=== PATIENT | female | born 1945 | race Caucasian/White ===

== ENCOUNTER 2024-05-24 14:38 | Emergency (ER) | payer MEDICARE, OTHER, SELFPAY ==
[2024-05-24] VITALS (7 sets, daily range): BP systolic 150–168; BP diastolic 53–74; PULSE 72–84; RESP 10–16; TEMP 36.5–36.7; O2SAT 95–99; BMI 24.4
--- NOTE | ~2024-05-24 | XR_ITS ---
EXAMINATION: XR CHEST CLINICAL INFORMATION: Syncope COMPARISON: None available. TECHNIQUE: Frontal view of the chest was obtained. FINDINGS: Lungs are clear. No focal airspace consolidation. No pneumothorax or pleural effusion. Soft tissue and osseous structures are within normal limits. Median sternotomy wires intact without dehiscence. Multiple clips in the mediastinum. Bilateral shoulder osteoarthritis. XR/XR chest 1V IMPRESSION: No acute cardiopulmonary process Electronically signed by: Gideon Aguayo DO 05/24/2024 04:11 PM EDT
--- NOTE | ~2024-05-24 | CT_ITS ---
EXAMINATION: CT HEAD WITHOUT CONTRAST CLINICAL INFORMATION: Syncopal episode COMPARISON: None available. TECHNIQUE: Contiguous axial imaging was performed from the skull base to vertex without intravenous administration of contrast. This CT examination was performed using dose optimization techniques as appropriate, variously including the following: *Automated exposure control *Adjustment of mA and/or kV according to patient size (this includes techniques or standardized protocols for targeted exams where dose is matched to indication/reason for exam; i.e. extremities or head) *Use of iterative reconstruction technique DLP: 638 mGy-cm FINDINGS: No intra-axial or extra-axial hemorrhage. No acute territorial infarct. Ventricles and sulci appear normal. Chronic small vessel ischemic disease of the periventricular white matter. Preservation of tapia-white matter differentiation. No mass, mass effect, or midline shift. No fracture. The mastoid air cells and visualized paranasal sinuses are clear. CT/CT head/brain wo IV con IMPRESSION: No acute intracranial pathology. Electronically signed by: Talha Juarez MD 05/24/2024 05:01 PM EDT
--- NOTE | 2024-05-24 15:14 | ECG_ITS ---
Test Reason : SYNCOPE Blood Pressure : / mmHG Vent. Rate : 071 BPM Atrial Rate : 071 BPM P-R Int : 188 ms QRS Dur : 082 ms QT Int : 436 ms P-R-T Axes : 066 063 082 degrees QTc Int : 473 ms Normal sinus rhythm Nonspecific ST abnormality Abnormal ECG No previous ECGs available Referred By: Navdeep Kennedy Electronically Signed By:NARDA OLIVER
--- NOTE | 2024-05-24 15:16 | ED.SYNCOPE ---
HPI - Syncope General Chief Complaint: Syncope Stated Complaint: SYNCOPAL EPISODE PER EMS Time Seen by Provider: 05/24/24 15:09 Source: patient, family and EMS Mode of arrival: EMS Limitations: no limitations History of Present Illness ED Provider: DR. Kennedy HPI narrative: 79-year-old female with significant past medical history of kidney disease, [place] had triple bypass, insulin-dependent diabetes for 60 years, chronic anemia, takes iron And takes once a month iron shot prescribed by her renal doctor, chronic black stool patient had recent endoscopy reportedly was negative, patient otherwise is active and live independently, patient was having a brunch with her family was sitting in the sun for long time patient apparently passed out do not remember the event, next thing she remember that she was on the floor. daughter in-law who witnessed the whole event said that it took about 3 minute when she lost consciousness questionable fine movement was not described as tonic-clonic, patient regained her full consciousness in 2 3 minutes with no postictal course, no self urination, family laid the patient on the ground with no head injury. Patient now feels herself, no chest pain, no shortness of breath. Related Data Allergies Allergy/AdvReac Type Severity Reaction Status Date / Time Penicillins Allergy Rash Verified 05/24/24 15:03 Sulfa (Sulfonamide Allergy Rash Verified 05/24/24 15:03 Antibiotics) Review of Systems Review of Systems: all other systems are reviewed and are negative Constitutional: Reports as per HPI and Reports no additional constitutional complaints Eyes: Reports as per HPI and Reports no additional eye complaints Reports system reviewed and no additional complaints, except as documented Cardiovascular: Reports as per HPI and Reports no additional cardiovascular complaints Respiratory: Reports as per HPI and Reports no additional respiratory complaints Gastrointestinal: Reports as per HPI and Reports no additional gastrointestinal complaints Genitourinary: Reports no additional female genitourinary complaints Musculoskeletal: Reports no additional musculoskeletal complaints Skin/Breast: Reports system reviewed and no additional complaints, except as docu Psychiatric: Reports no additional psychiatric complaints Endocrine: Reports no additional endocrine complaints Hematologic/Lymphatic: Reports no additional hematologic/lymphatic complaints Allergic/Immunologic: Reports no additional allergic/immunologic complaints Reports system reviewed and no additional complaints, except as documented and Reports Abnormal speech present [facility] Social History Social History Smoked in Last 30 Days: No Use of substances other than those prescribed or required for medical reasons: No Advance Directives: Yes Advance Directives Information Provided: No Advance Directives on File: No Do you have a plan to hurt others: No Plan Physical Exam Vital Signs: Vital Signs: Last Vital Signs Temp 97.7 F 05/24/24 15:05 Pulse 84 05/24/24 16:01 Resp 10 L 05/24/24 15:05 BP 159/59 H 05/24/24 16:01 Pulse Ox 95 05/24/24 15:10 O2 Del Method Room Air 05/24/24 15:10 BMI result Body Mass Index 24.4 Vital signs have been reviewed and appear to be correct. Blood pressure elevated. Heart rate normal. Respiratory rate normal. Temperature normal. Oxygen saturation normal. Appearance: Alert. Oriented X3. No acute distress. Head: Normal external exam. Normocephalic. Atraumatic. No Hunter signs noted. No raccoon eyes noted Eyes: PERRLA. EOMI. Conjunctiva and sclera normal. Eyelids normal. ENT: TM's Normal. Pharynx normal. Uvula midline. Moist mucous membranes. No trismus noted. No drooling noted. No muffled voice noted. Neck: Normal inspection. Neck supple. FROM. No adenopathy. Thyroid Normal. No meningeal signs. No neck mass noted. CVS: Normal heart rate and rhythm. Heart sound normal. No murmurs noted. Pulses normal throughout. Respiratory: No respiratory distress. Painless inspiration. Breath sounds normal. No wheezes/rales/rhonchi noted. Chest nontender. No accessory muscle usage noted or decreased air movement noted. Abdomen: Soft and nontender. Bowel sounds normal in all 4 quadrants. No distention noted. No organomegaly noted. No visible injury noted. Back: No CVA tenderness. Full range of motion noted. Skin: Skin warm and dry. Normal skin color. Normal skin turgor. No rashes/lesions/lacerations noted. Extremities: No lower extremity edema. Extremities exhibit normal range of motion. Extremities nontender. Neuro: Oriented X 3. GCS 15 Cranial nerve exam: II-XII are grossly intact No motor deficit. No sensory deficit. Reflexes normal. Course Reevaluation(s) Reevaluation #1: syncopal episode after having branch with her entire family, patient is going through stress granddaughter wedding, patient also spend lot of time sitting in the sun today before the event happened. Patient has negative workup in the emergency department, no orthostatic, negative head CT, no ACS troponin is negative x2 with unremarkable EKG. patient was offered admission for cardiac monitoring for detecting any lethal dysrhythmia but daughter is a nurse and she will take her home monitor her overnight make sure she follow-up with her residential builder. Time: 18:01 Medications Administered Discontinued Medications Generic Name Dose Route Start Last Admin Trade Name Freq PRN Reason Stop Dose Admin Sodium Chloride 1,000 mls @ 999 mls/hr 05/24/24 15:14 05/24/24 16:50 Ns IV 05/24/24 16:14 Infused .Q1H1M ONE Infusion Medical Decision Making Differential Diagnosis Differential Diagnoses: The differential diagnosis associated with the presentation includes ( Syncope, seizure, electrolyte derangement, severe anemia, dehydration, ACS, CHF, UTI, upper respiratory viral infection, intracranial bleed, pneumonia.) Admission/Observation Consideration of admission/observation: Escalation of care including admission/observation considered Lab Data MDM Lab Attestation statement: I reviewed the patient's lab results. 05/24/24 15:32 05/24/24 15:32 Labs: Lab Results 05/24/24 05/24/24 Range/Units 15:32 16:57 WBC 7.1 (4.8-10.8) X10*3/uL RBC 3.22 L (4.20-5.50) X10*6/uL Hgb 9.6 L (12.0-16.0) g/dl Hct 29.5 L (37.0-47.0) % MCV 91.6 (80.0-98.0) fL MCH 29.8 (27.0-33.0) pg MCHC 32.5 (31.0-35.0) g/dl RDW 15.4 (11.0-16.0) % Plt Count 225 (160-400) X10*3/uL MPV 9.1 L (9.4-12.3) fL Immature Gran % (Auto) 0.3 (0.0-0.4) % Neut % (Auto) 68.9 (45-73) % Lymph % (Auto) 16.0 L (20-40) % Stanley % (Auto) 9.7 (2-11) % Eos % (Auto) 4.4 H (0-4) % Baso % (Auto) 0.7 (0-2) % Lymph # (Auto) 1.1 L (1.2-4.9) X10*3/uL [place] # (Auto) 0.7 (0.1-1.2) X10*3/uL Eos # (Auto) 0.3 (0.0-0.4) X10*3/uL Baso # (Auto) 0.1 (0.0-0.2) X10*3/uL Abs Immat Gran (auto) 0.02 (0.00-0.03) X10*3/uL Absolute Neuts (auto) 4.9 (2.0-8.3) x10*3/uL Absolute Nucleated RBC 0.000 (0.0-0.012) X10*3/uL Nucleated RBC % (auto) 0.0 (0.0-0.2) /100WBC Sodium 144 (135-145) mmol/L Potassium 4.2 (3.3-5.1) mmol/L Chloride 107 (96-108) mmol/L Carbon Dioxide 23 (22-29) mmol/L Anion Gap 18 (12-20) BUN 56 H (9-16) mg/dL Creatinine 3.32 H (0.5-1.4) mg/dL Estim Creat Clear Calc 11.0 Estimated GFR 13 Random Glucose 168 H (60-115) mg/dL Calcium 9.0 (8.4-10.2) mg/dL Total Bilirubin 0.3 (0.0-1.0) mg/dL Direct Bilirubin 0.1 (0.0-0.5) mg/dL AST 19 (5-31) U/L ALT 16 (0-31) U/L Alkaline Phosphatase 86 (39-117) U/L Troponin I High Sens 13.2 13.3 (<3.5-17.0) ng/L B-Natriuretic Peptide 454 H (<100) pg/mL Total Protein 6.8 (6.5-8.0) g/dL Albumin 3.6 (3.5-5.0) g/dL Lipase 23 (8-78) U/L Urine Color Yellow Urine Appearance Clear Urine pH 6.0 (5.0-9.0) Ur Specific [place] 1.010 (1.005-1.025) Urine Protein 100 (2+) H (Neg-Trace) mg/dL Urine Glucose (UA) 500 H (Negative) mg/dL Urine Ketones Negative (Negative) mg/dL Urine Blood Trace H (Negative) Urine Nitrite Negative (Negative) Ur Leukocyte Esterase Small (1+) H (Negative) Urine RBC 3-5 H (0-2) /HPF Urine WBC 0-5 (0-5) /HPF Ur Squamous Epith Cells 0-2 (0-2) /HPF Urine Bacteria 3+ (None Seen) Hyaline Casts 3-5 (0-2) /LPF Influenza Type A (PCR) NEGATIVE (Negative) Influenza Type B (PCR) NEGATIVE (Negative) RSV RNA Qual (PCR) NEGATIVE (Negative) SARS-CoV-2 RNA (RT-PCR) NEGATIVE (Negative) Independent Interpretation I performed an independent interpretation of an: EKG ( Normal sinus rhythm at 71 beats per minutes, normal intervals, no ST-T changes, no old EKG to compare.), Plain X-Ray ( No acute cardio pulmonary process.) and CT Scan ( Head: No acute intracranial pathology.) Radiology Impression Discussion of test interpretation with radiology: I have reviewed the radiologist's reading. Chronic Conditions Patient?s care impacted by: Diabetes, Hypertension and Other ( Cardiac condition.) Discharge Plan Discharge Clinical Impression: Vasovagal syncope Patient Disposition: Home, Self-Care Instructions: Syncope (ED) Print Language: Nigerien
[2024-05-24] MEDS: 0.9 % Sodium Chloride 1,000 ML 999 ML IV (15:31)
[2024-05-24 15:37] LABS: MANUAL DIFF FLAG NO
[2024-05-24 15:40] LABS: Basophils Absolute Auto 0.1 X10*3/uL (0.0-0.2); Basophils Percent Auto 0.7 % (0-2); Eosinophils Absolute Auto 0.3 X10*3/uL (0.0-0.4); Eosinophils Percent Auto 4.4 % (0-4); Hematocrit 29.5 % (37.0-47.0); Hemoglobin 9.6 g/dl (12.0-16.0); Imm Gran Abs Auto 0.02 X10*3/uL (0.00-0.03); Imm Gran Pct Auto 0.3 % (0.0-0.4); Lymphocytes Absolute Auto 1.1 X10*3/uL (1.2-4.9); Mean Corpuscular HGB Conc 32.5 g/dl (31.0-35.0); Mean Corpuscular Hemoglobin 29.8 pg (27.0-33.0); Mean Corpuscular Volume 91.6 fL (80.0-98.0); Mean Platelet Volume 9.1 fL (9.4-12.3); Monocytes Absolute Auto 0.7 X10*3/uL (0.1-1.2); Monocytes Percent Auto 9.7 % (2-11); Neutrophils Absolute Auto 4.9 x10*3/uL (2.0-8.3); Neutrophils Percent Auto 68.9 % (45-73); Platelet Count 225 X10*3/uL (160-400); Red Blood Count 3.22 X10*6/uL (4.20-5.50); Red Cell Distribution Width 15.4 % (11.0-16.0); White Blood Count 7.1 X10*3/uL (4.8-10.8)
[2024-05-24 15:57] LABS: Alanine Aminotransferase 16 U/L (0-31); Albumin Level 3.6 g/dL (3.5-5.0); Alkaline Phosphatase 86 U/L (39-117); Anion Gap 18 (12-20); Aspartate Amino Transferase 19 U/L (5-31); Bilirubin Direct 0.1 mg/dL (0.0-0.5); Bilirubin Total 0.3 mg/dL (0.0-1.0); Blood Urea Nitrogen 56 mg/dL (9-16); Carbon Dioxide 23 mmol/L (22-29); Chloride 107 mmol/L (96-108); Estimated Glomerular Filt Rate 13; Glucose Random 168 mg/dL (60-115); Lipase 23 U/L (8-78); Potassium 4.2 mmol/L (3.3-5.1); Sodium 144 mmol/L (135-145); Total Protein 6.8 g/dL (6.5-8.0)
[2024-05-24 16:03] LABS: B Type Natriuretic Peptide 454 pg/mL (<100)
[2024-05-24 16:04] LABS: Troponin-I High Sensitivity 13.2 ng/L (<3.5-17.0)
[2024-05-24 16:15] LABS: Influenza A PCR NEGATIVE (Negative); Influenza B PCR NEGATIVE (Negative); Resp Syncy Virus RNA Qual PCR NEGATIVE (Negative); SARS COV2 PCR INHOUSE NEGATIVE (Negative)
[2024-05-24 17:03] LABS: Appearance Urine Clear; Color Urine Yellow; Glucose Urine UA 500 mg/dL (Negative); Leukocyte Esterase Urine Small (1+) (Negative); Nitrite Urine Negative (Negative); UMIC TRIGGER UACC YES; Urine Blood Trace (Negative); Urine Ketones Negative (Negative); Urine Protein 100 (2+) mg/dL (Neg-Trace)
[2024-05-24 17:12] LABS: Bacteria Urine 3+ (None Seen); Squamous Epithelial Cell Urine 0-2 /HPF (0-2); UACC Culture Trigger YES; WBC Urine 0-5 /HPF (0-5)
[2024-05-24 17:23] LABS: Troponin-I High Sensitivity 13.3 ng/L (<3.5-17.0)
== END 2024-05-24 19:00 | disposition home or self-care (01) ==
PROVIDERS: Emergency Provider Emergency Medicine
DX: R55 Syncope and collapse (principal); Z03.818 Encounter for observation for suspected exposure to other biological agents ruled out; E11.22 Type 2 diabetes mellitus with diabetic chronic kidney disease; I12.9 Hypertensive chronic kidney disease with stage 1 through stage 4 chronic kidney disease, or unspecified chronic kidney disease; N18.9 Chronic kidney disease, unspecified; D64.9 Anemia, unspecified; I25.2 Old myocardial infarction; Z79.4 Long term (current) use of insulin; Z79.899 Other long term (current) drug therapy
CPT/HCPCS: 0241U; 36415; 70450; 71045; 80048; 80076; 81001; 81003; 83690; 83880; 84484; 85025; 87086; 93005; 96360; 99284; 99285